=== PATIENT | male | born 2000 | race Two or more races ===

== ENCOUNTER 2023-11-07 18:46 | Emergency (ER) | payer OTHER ==
[~2023-11-07] VITALS: Ht 172.7 cm; Wt 81.8 kg
[~2023-11-07 18:46] MED LIST: CEPH-558 PO; IBUP-1492 PO; SULF-261 PO
[2023-11-07 18:54] VITALS: TEMP 98.9
[2023-11-07 19:34] VITALS: BP 109/64; PULSE 82; RESP 18
[2023-11-07] MEDS ORDERED: ACET-3385 PO (23:47)
[2023-11-07] MEDS ORDERED: CEPH-558 PO (23:47)
[2023-11-07] MEDS ORDERED: SULF-261 PO (23:47)
== END 2023-11-07 21:45 | disposition left against medical advice (07) ==
LOC: EMS 18:54
DX: R10.31 Right lower quadrant pain (principal); Z53.21 Procedure and treatment not carried out due to patient leaving prior to being seen by health care provider
CPT/HCPCS: 99281; Z7502

== ENCOUNTER 2023-11-07 22:15 | Emergency (ER) | payer OTHER ==
[~2023-11-07] VITALS: Ht 172.7 cm; Wt 81.8 kg
[2023-11-07 22:22] VITALS: BP 134/90; PULSE 67; RESP 16; TEMP 97.7
[2023-11-07] MEDS ORDERED: SULF-261 PO (23:47)
[2023-11-07] MEDS ORDERED: CEPH-558 PO (23:47)
[2023-11-07] MEDS ORDERED: ACET-3385 PO (23:47)
[2023-11-08] MEDS: ACETAMINOPHEN 325 MG TABLET PO ONE (00:12)
[2023-11-08] MEDS: CefTRIAXone SODIUM 1 GM/VIAL IM ONE (00:12)
[2023-11-08] MEDS: LIDOCAINE/PF 1% 2 ML VIAL IM ONE (00:13)
== END 2023-11-08 00:19 | disposition home or self-care (01) ==
LOC: EMS 22:15
DX: L03.311 Cellulitis of abdominal wall (principal); J45.909 Unspecified asthma, uncomplicated; F17.210 Nicotine dependence, cigarettes, uncomplicated
CPT/HCPCS: 99283; 96372; J0696; J3490